=== PATIENT | male | born 1970 | race Caucasian/White ===

== ENCOUNTER → 2017-01-26 | Outpatient (CLI) | payer OTHER ==
[2017-01-26 11:44] VITALS: BP 144/88; PULSE 70; RESP 20; TEMP 97.8; BMI 58.5
--- NOTE | 2017-01-26 11:50 | P.HPBAR ---
Bariatric H&P - History & Physicial H&P Date: 01/26/17 History & Physicial: Visit/CC: wants band out, pursuing sleeve Patient initial contact: 12/08/16 Initial weight: 205.477 kg Initial weight in pounds: 453.00 Height: 6 ft 1.75 in Initial BMI: 58.5 Last weight: Current weight: 205.477 kg Current weight in pounds: 453.00 Current BMI: 58.5 [place] body weight (based on NIH guidelines): 85.502 kg Excess body weight loss: 0.0% The patient is a 46 year-old M who presents for Bariatric Assessment. Patient is well-known to our service. The patient underwent laparoscopic band placement 2009. His band was later emptied and 2015 at [facility]. The patient unfortunately has not done well with his lap band. Despite following our nutritional and exercise regimen postoperatively the patient had poor weight loss. The patient has had difficulties tolerating band adjustments with frequent episodes of vomiting and reflux. Patient is interested in conversion of His band to a sleeve gastrectomy at this point. He is familiar with both the sleeve gastrectomy and the gastric bypass. His in fact has had a gastric bypass. He has seen some of the side effects of the gastric bypass and would like to avoid that. Recently he has had some issues with Darron elizabeth. His other medical issues include hypertension sleep apnea chronic back pain chronic joint pain. Patient denies reflux now that His band is been emptied. Patient has no complaints of DVT. He is not taking any blood thinners. Review of Systems The patient denies any acute changes in his vision or hearing, no dysphagia or odynophagia, no chest pain or shortness of breath, no dysuria or hematuria, no headache, no runny nose, no rectal bleeding or melena, no unexplained weight loss Past Medical History History of Any Multi-Drug Resistant Organisms: None Reported Smoking Status: Never smoker Surgical - Exam Vital Signs Temp Pulse Resp BP 97.8 F 70 20 144/88 01/26/17 11:19 01/26/17 11:19 01/26/17 11:19 01/26/17 11:19 Physical exam: General: Well-developed, well-nourished HEENT: Normocephalic, sclerae nonicteric Abdomen: Nontender, nondistended Extremities: No edema Neuro: Alert and oriented Bariatric Assessment & Plan (1) Morbid obesity Narrative/Plan: Patient I discussed in detail the options of band conversion. The associated risks were reviewed. The patient did go to a recent seminar last month. We'll continue to work towards scheduling preoperative upper endoscopy and subsequent sleeve gastrectomy with band removal. Status: Acute Bariatric Checklist Checklist: Plan: Checklist: EGD: 1. Hiatal hernia: 2. H. Pylori: HgbA1c: Vitamin D: Smoking: Never smoker Primary care physician referral: Cuauhtemoc Oden Psychiatry clearance: Cardiology clearance: Sleep study: Diet journal: VTE risk score: VTE risk level: Rehab needs at discharge:
== END ==
LOC: BARWHC3 11:03
PROVIDERS: ATTEND Surgery
DX: Z48.816 Encounter for surgical aftercare following surgery on the genitourinary system (principal); Z98.84 Bariatric surgery status; E66.01 Morbid (severe) obesity due to excess calories
CPT/HCPCS: 99201

== ENCOUNTER 2017-02-17 08:09 | Day surgery (SDC) | payer OTHER ==
[2017-02-15 10:46] VITALS: BMI 56.2
[~2017-02-17 08:09] MED LIST: LACTATED RINGERS 1,000 ML IV SCH; LIDOCAINE 1% 20 ML VIAL (10MG/ML) FOR IV START INTRADERMA PRN
[2017-02-17 08:19] VITALS: RESP 20; TEMP 97.8
[2017-02-17] MEDS ORDERED: LACTATED RINGERS 1,000 ML IV ONE (08:23)
[2017-02-17] MEDS ORDERED: PROPOFOL 10 MG/ML 20 ML VIAL IV ONE (08:38)
[2017-02-17] MEDS ORDERED: LIDOCAINE 1% INJ 10MG/ML (20 ML MDV) ONE (08:38)
--- NOTE | 2017-02-17 08:40 | P.GSHP ---
History of Present Illness H&P Date: 02/17/17 Chief Complaint: GERD Patient here today for upper endoscopy. He has a history of heartburn. Since his band was emptied the heartburn is improved. He was having intermittent dysphagia and vomiting but that is also resolved. No abdominal pain. Patient is considering conversion to either sleeve gastrectomy or gastric bypass. Past Medical History Past Medical History: Atrial Fibrillation, Asthma, Hyperlipidemia, Hypertension , Sleep Apnea/CPAP/BIPAP Additional Past Medical History / Comment(s): uses CPAP, currently taking antibiotic for ear infection History of Any Multi-Drug Resistant Organisms: None Reported Past Surgical History: Bariatric Surgery Additional Past Surgical History / Comment(s): lap band 2010 Past Anesthesia/Blood Transfusion Reactions: No Reported Reaction Smoking Status: Never smoker - Past Family History Mother Family Medical History: Cancer Medications and Allergies Home Medications Medication Instructions Recorded Confirmed Type Losartan/Hydrochlorothiazide 1 tab PO DAILY 01/26/17 02/15/17 History [Losartan-Hctz 100-12.5 mg Tab] Metoprolol Succinate [Toprol XL] 50 mg PO BID 01/26/17 02/15/17 History Multivitamin [Men's Multi-Vitamin] 1 tab PO DAILY 01/26/17 02/15/17 History Propafenone [Rythmol] 150 mg PO BID 01/26/17 02/15/17 History Antibiotic-Unknown Name & Dose 1 tab PO BID 02/15/17 History Aspirin 81 mg PO DAILY 02/15/17 02/15/17 History Fexofenadine HCl [Sandra Allergy] 180 mg PO DAILY 02/15/17 02/15/17 History Allergies Allergy/AdvReac Type Severity Reaction Status Date / Time No Known Allergies Allergy Verified 02/15/17 10:36 Surgical - Exam Vital Signs Temp Pulse Resp BP 97.8 F 73 20 140/75 02/17/17 08:18 02/17/17 08:18 02/17/17 08:18 02/17/17 08:18 Physical exam: General: Well-developed, well-nourished HEENT: Normocephalic, sclerae nonicteric Abdomen: Nontender, nondistended Extremities: No edema Neuro: Alert and oriented Assessment and Plan (1) Morbid obesity Narrative/Plan: Will proceed with upper endoscopy at this time. Status: Acute
--- NOTE | 2017-02-17 08:49 | P.PCN ---
Date of Procedure: 02/17/17 Preoperative Diagnosis: Postoperative Diagnosis: Procedure(s) Performed: Preoperative Dx: GERD Postoperative Dx: Mild gastritis Procedure: EGD with Bx Anesthesia: Sedation Endoscopist: Dr. Copeland Specimens: Antrum Endoscopic Procedure: The patient was on the endoscopy table in the left decubitus position. The Olympus gastroscope was inserted into the oropharynx and passed under direct visualization to the region of the third portion of the duodenum. From that point the scope was slowly withdrawn inspecting all surfaces carefully. There were no neoplastic inflammatory or polypoid lesions throughout the duodenum. The pylorus was widely patent. The stomach was carefully inspected. There was mild gastritis present. A biopsy of the antrum took place to rule out H. pylori. Retroflexion revealed a previous band plication. There was no evidence of erosion or prolapse. I could not visualize a hiatal hernia. The esophagus was then carefully examined. There were no neoplastic inflammatory or polypoid lesions throughout the visualized esophagus. The patient was then taken to the recovery room in stable condition per anesthesia guidelines. Recommendations: But seems results. Continue workup moving towards the band conversion. Implants: Indications for Procedure: Operative Findings: Description of Procedure:
[2017-02-17 09:29] VITALS: BP 162/93; PULSE 78
[2017-02-17] MEDS ORDERED: IV FLUID CONTINUATION 1,000 ML IV ONE (09:29)
== END 2017-02-17 09:35 | disposition home or self-care (01) ==
LOC: ORWHC2ENDO 08:09
PROVIDERS: ATTEND Surgery
DX: Z98.84 Bariatric surgery status (principal); K29.50 Unspecified chronic gastritis without bleeding; I48.91 Unspecified atrial fibrillation; J45.909 Unspecified asthma, uncomplicated; E78.5 Hyperlipidemia, unspecified; K21.9 Gastro-esophageal reflux disease without esophagitis; G47.30 Sleep apnea, unspecified; Z99.89 Dependence on other enabling machines and devices; E66.01 Morbid (severe) obesity due to excess calories; Z68.43 Body mass index [BMI] 50.0-59.9, adult; Z79.82 Long term (current) use of aspirin; Z79.899 Other long term (current) drug therapy
CPT/HCPCS: 88305; 88342; 43239; J2001; J2704

== ENCOUNTER → 2017-03-09 | Outpatient (CLI) | payer OTHER ==
[2017-03-09 14:51] VITALS: BP 142/70; PULSE 63; TEMP 97.8; BMI 58.6
--- NOTE | 2017-03-09 15:01 | P.BASOAP ---
Subjective Principal diagnosis: Morbid obesity Patient is seen after his recent upper endoscopy. Upper endoscopy was being performed as a preoperative evaluation prior to band conversion. The patient and his and I at the time of his recent upper endoscopy discussed the advantages and disadvantages of the gastric bypass and gastric sleeve again in more detail. He is now more amenable to discussing conversion to gastric bypass. He actually has had an opportunity to talk to at least 2 other friends and family members that have had a gastric bypass and done well. The patient does not tolerate his band adjustments because of reflux dysphagia and poor weight loss. Objective - Vital Signs Vital signs: Vital Signs Temp 97.8 F 03/09/17 14:48 Pulse 63 03/09/17 14:48 Resp BP 142/70 03/09/17 14:48 Pulse Ox Intake & Output 03/08/17 03/09/17 03/09/17 18:59 06:59 18:59 Weight 205.749 kg - Exam Abdomen: Soft, obese, nontender, nondistended Assessment/Plan (1) Morbid obesity Narrative/Plan: Patient currently intolerant of his lap band adjustments. Band remains empty at this point. The patient does in my opinion require conversion to alternative bariatric procedure. The patient is amenable to discussing gastric bypass further at this point. Appointment will be made for him to see one of our fellow bariatric surgeons to discuss gastric bypass. We will also clarify with the billing department his ability to move forward with conversion. Plan: Date: 03/09/17 Initial Weight: 205.477 kg Initial BMI: 58.5 Current Weight: 205.749 kg Current BMI: 58.6 Type of Surgery: Total Volume in Band: Previous Volume: Volume Removed: Volume Added: Band Size:
== END | disposition home or self-care (01) ==
LOC: BARWHC3 14:06
PROVIDERS: ATTEND Surgery
DX: E66.01 Morbid (severe) obesity due to excess calories (principal)
CPT/HCPCS: 99211

== ENCOUNTER → 2017-03-15 | Outpatient (CLI) | payer OTHER ==
[2017-03-15 09:31] VITALS: BP 147/94; PULSE 52; RESP 15; TEMP 97.2; BMI 59.1
--- NOTE | 2017-03-22 12:16 | P.GSHP ---
History of Present Illness H&P Date: 03/15/17 Chief Complaint: Morbid Obesity BMI 59 47 years old male with morbid obesity BMI 59, height 6 feet 1.75 inches, weight 207.6 KG presents for bariatric surgery consultation. Patient has elected to undergo laparoscopic sleeve gastrectomy and presents today to discuss about lap RYGB . He had lap band placed several years ago . Had success initially with weight loss but has gained more weight. He has attended weight loss seminar. He has attempted nonsurgical weight loss . He has lost some weight but is unable to maintain sustained results. His comorbid conditions include obstructive sleep apnea on CPAP,hypertension, hypercholesterolemia, moderate asthma . Denies any heartburn or reflux. - Review of Systems Comment: Constitutional: Denies fever, weight loss or loss of appetite HEENT: No difficulty in vision or hearing. Denies dysphagia. Cardiovascular: Denies chest pain, palpitations, dizziness, shortness of breath. Has Afib Respiratory: No cough or SOB . Has asthma Gastrointestinal: No recent change in bowel habits, no abdominal pain, no nausea or vomiting. Denies reflux symptoms and no postprandial right upper quadrant pain. Integumentary: No skin changes Genitourinary: No urinary incontinence, hematuria or dysuria Neurologic: No seizures, denies weakness in upper or lower extremities Musculoskeletal: No arthritis or backpain Psychiatry: No history of depression, no suicidal ideation, no anxiety or psychosis ROS unobtainable: Reports: due to endotracheal tube Past Medical History Past Medical History: Atrial Fibrillation, Asthma, Hyperlipidemia, Hypertension , Sleep Apnea/CPAP/BIPAP Additional Past Medical History / Comment(s): uses CPAP History of Any Multi-Drug Resistant Organisms: None Reported Past Surgical History: Bariatric Surgery Additional Past Surgical History / Comment(s): lap band [address] as of 2017 Past Anesthesia/Blood Transfusion Reactions: No Reported Reaction Past Psychological History: No Psychological Hx Reported Smoking Status: Never smoker Past Alcohol Use History: None Reported Past Drug Use History: None Reported - Past Family History Mother Family Medical History: Cancer Additional Family Medical History / Comment(s): Lymphoma ( at age 52 from Lymphoma) Father Family Medical History: Myocardial Infarction (MD) Additional Family Medical History / Comment(s): at age 42 from heart attack Medications and Allergies Home Medications Medication Instructions Recorded Confirmed Type Losartan/Hydrochlorothiazide 1 tab PO DAILY 01/26/17 03/15/17 History [Losartan-Hctz 100-12.5 mg Tab] Metoprolol Succinate [Toprol XL] 50 mg PO BID 01/26/17 03/15/17 History Multivitamin [Men's Multi-Vitamin] 1 tab PO DAILY 01/26/17 03/15/17 History Propafenone [Rythmol] 150 mg PO BID 01/26/17 03/15/17 History Aspirin 81 mg PO DAILY 02/15/17 03/15/17 History Fexofenadine HCl [Sandra Allergy] 180 mg PO DAILY 02/15/17 03/15/17 History Allergies Allergy/AdvReac Type Severity Reaction Status Date / Time No Known Allergies Allergy Verified 03/15/17 10:23 Surgical - Exam Vital Signs Temp Pulse Resp BP 97.2 F L 52 L 15 147/94 03/15/17 09:27 03/15/17 09:27 03/15/17 09:27 03/15/17 09:27 General: Patient is alert and oriented to time, place and person and cooperative with exam. He is not in acute distress. HEENT: No pallor, no icterus, no thyroid enlargement, no cervical lymphadenopathy. Chest: Bilateral equal breath sounds present. No wheezes, no crackles. Cardiovascular: Regular rate and rhythm. Abdomen: Soft, nontender, nondistended. Integumentary: Bilateral lower extremity chronic venous dermatitis. No active ulcers or discharge. Neurologic: Cranial nerves II-XII intact. Strength upper and lower extremities 5/5. No focal neurologic deficits. Gait is normal. Psychiatric: No anxiety or psychosis. No suicidal thoughts. Assessment and Plan (1) Morbid obesity Status: Acute (2) Hypertension Status: Acute (3) Hypercholesteremia Status: Acute Plan: 47 years old male with morbid obesity BMI 59, prior history of lap band presenting for revisional bariatric procedure. He presented today to discuss about gastric bypass. He already sees Dr. Copeland and is undergoing workup for possible gastric sleeve. An in-depth discussion was held with the patient and his regarding the risks, benefits and potential complications of both procedures. Gastric bypass resulting greater weight loss. However there unique complications secondary to gastric bypass including internal hernias and dumping syndrome. It is vital that patients sticks with diet plan in excess regimen to achieve maximum weight loss and have long-term success. Recommend cardiology evaluation prior to any surgical procedure. If he decides to undergo [id number]-[id number] gastric bypass, I recommend doing two-stage surgery removal of lap band followed by gastric bypass at a later date. Patient will discuss with family and decide
== END | disposition home or self-care (01) ==
LOC: BARWHC3 09:00
PROVIDERS: ATTEND Surgery
DX: Z48.815 Encounter for surgical aftercare following surgery on the digestive system (principal); E66.01 Morbid (severe) obesity due to excess calories; Z68.43 Body mass index [BMI] 50.0-59.9, adult; Z79.899 Other long term (current) drug therapy; G47.30 Sleep apnea, unspecified; Z99.89 Dependence on other enabling machines and devices; Z98.84 Bariatric surgery status
CPT/HCPCS: 99211

== ENCOUNTER → 2017-06-21 | Outpatient (CLI) | payer OTHER ==
[2017-06-21 13:36] VITALS: BMI 61.6
== END | disposition home or self-care (01) ==
LOC: BARWHC3 08:51
PROVIDERS: ATTEND Surgery
DX: E66.01 Morbid (severe) obesity due to excess calories (principal)
CPT/HCPCS: 97804